=== PATIENT | female | born 1955 | race Caucasian/White ===

== ENCOUNTER → 2020-05-22 11:53 | Outpatient (CLI) | payer BC, SELFPAY ==
[2020-05-22 13:06] LABS: Coronavirus 19 IgG Antibody Negative (Negative); Coronavirus 19 IgM Antibody Negative (Negative)
== END ==
PROVIDERS: Visit Provider Internal Medicine Gastroenterology
DX: Z01.812 Encounter for preprocedural laboratory examination (principal)
CPT/HCPCS: 36415; 86328

== ENCOUNTER 2020-05-24 06:48 | Day surgery (SDC) | payer BC, SELFPAY ==
[2020-05-21 14:15] VITALS: BMI 32.1
[2020-05-24 07:17] VITALS: BP 192/96; PULSE 71; RESP 16; TEMP 36.3; O2SAT 98
[2020-05-24 07:20] LABS: POC Glucose,Bedside 136 (70-110)
[2020-05-24 08:06] VITALS: O2SAT 97
--- NOTE | 2020-05-24 08:07 | HMH.ANESCL ---
[facility] Anesthesia Checklist - Patient Identification Patient Identification: Arm Band - Structural Data Admitted From: Home Planned Operative Procedure/s: egd Consent for Planned Operative Procedure(s) Verified: Yes Verified Documents: Surgical Consent, History and Physical - NPO Status Verified Time NPO: 00:00 - Additional verifications Anesthesia Reactions: No - Airway Assessment C-Spine Mobility Assessed: Yes (mp2) TMJ Mobility Assessed: Yes Dentition: Good Dentition - Neurological Assessment Level of Consciousness: Awake, Alert - Anesthesia Plan Anesthesia Risk discussed: Yes Anesthesia Plan: Verified ASA Class: III Anesthesia Type: MAC [facility] History I have reviewed the patient's past medical history: Yes Medical History: Reports:: Diabetes Mellitus Type 2, Heart Murmur, Hyperlipidemia, Hypertension Denies:: Cancer, Diabetes Mellitus Type 1, Internal Pacemaker, MRSA, Seizures *Have you ever received a pneumonia vaccine?: Yes *Have you received a flu vaccine this season?: Yes Anesthesia experience/problems:: nac Other Surgeries: Yes: Hysterectomy-Total, Other. No: Pacemaker Amputation: No Fractures: No - *Social History Alcohol Intake: never Substance Use Type: denies use *Occupational Status:: retired Housing: house Household Members: spouse *Travel in the last 8 weeks: None Family Hx:: No significant family history
--- NOTE | 2020-05-24 08:08 | P.PCN_ITS ---
[facility] Procedure Note Procedure Note:: Upper Endoscopy Procedure Report: Esophagogastroduodenoscopy with cold biopsies and TTS balloon dilation Endoscopost: Ezequiel Blanco II, MD Referring Physician: Paulino Greco MD Date of Procedure: May 24, 2020 Equipment: Olympus GIF 180 standard upper endoscope Sedation: MAC sedation Indications: Mrs. Torres is a 65-year-old female who was diagnosed with Dent's esophagus 1-1/2 years ago in [place] (Dr. Gallo Palafox) and she has been on omeprazole. Most of her symptoms of heartburn and reflux are controlled. The patient does get dyspepsia with epigastric abdominal discomfort, bloating and belching. Occasionally, she will have to expel gas or have a bowel movement to get some relief. She does have some looser bowel movements that alternate with regular. She has some incomplete bowel evacuation. The patient reports occasional nausea and emesis. She has occasional dysphagia. Procedure: Prior to the procedure, a history and physical exam was performed, and patient's medications and allergies were reviewed. The risks, benefits and alternatives of the sedation and procedure were discussed with the patient. All questions were answered and informed consent was obtained. The patient was brought to the procedure room. Patient identification and proposed procedure were verified by the physician and the nurse. The patient was placed in a left lateral decubitus position and the scope was passed under direct vision. Throughout the procedure, the patient's blood pressure, pulse, and oxygen saturations were monitored continuously. The upper GI endoscopy was accomplished without difficulty. The patient tolerated the procedure well. Findings: The scope was passed directly into the upper esophagus and advanced to the third portion of the duodenum. The post bulbar duodenum and duodenal bulb were normal with normal mucosa and conniventes. Cold biopsies were obtained from the post bulbar duodenum and duodenal bulb to rule out celiac disease. The scope was withdrawn through a normal duodenal bulb and pylorus into the stomach. There was evidence of moderate linear reactive gastropathy of the antrum and body of the stomach with bile reflux. The remainder of the fundus of the stomach were grossly normal. Upon retroflexion there was a 2 cm small hiatal hernia. 2 biopsies were taken in the antrum and along the lesser curvature for histology to rule out gastritis and/or H pylori. The scope was then withdrawn into the esophagus. There was a serrated Z-line with a couple of small islands of salmon-colored mucosa that were biopsied to rule out very short segment Dent's esophagus. There was no evidence of reflux esophagitis. There were tertiary contractions and evidence of moderate esophageal dysmotility. The entire esophagus was dilated to 60 [place]/20 mm with a TTS hydrostatic balloon. There was some resistance at the cricopharyngeus. The remainder of the esophageal mucosa was normal. Impression: 1. Very short segment Dent's esophagus 2. Nonerosive GERD with moderate esophageal dysmotility and small 2 cm hiatal hernia 3. Moderate linear reactive gastropathy with bile reflux Plan: The patient has a very short segment of Dent's and I will follow-up the biopsies. The patient should not require surveillance upper endoscopy for 3 to 5 years as long as the Dent's shows no evidence of dysplasia. I would continue PPI therapy for complicated GERD. The patient does have some functional dyspepsia. We will discuss additional dietary measures and treatment options.
[2020-05-24 08:23] VITALS: BP 150/80; PULSE 75; RESP 12; TEMP 36.9; O2SAT 96
[2020-05-24 08:33] VITALS: BP 169/85; PULSE 73; RESP 16; O2SAT 96
[2020-05-24 08:43] VITALS: BP 166/86; PULSE 74; RESP 16; O2SAT 97
[2020-05-24 08:53] VITALS: BP 170/83; PULSE 62; RESP 16; TEMP 36.9; O2SAT 96
== END 2020-05-24 09:04 | disposition home or self-care (01) ==
LOC: OUTP 06:51
PROVIDERS: PCP Internal Medicine; Visit Provider Internal Medicine Gastroenterology
PROC: 0DJ08ZZ Inspection of Upper Intestinal Tract, Via Natural or Artificial Opening Endoscopic (ICD-10-PCS; CPT 43235; principal; 2020-05-24 08:00)
DX: K22.4 Dyskinesia of esophagus (principal); K22.719 Barrett's esophagus with dysplasia, unspecified; K21.9 Gastro-esophageal reflux disease without esophagitis; K44.9 Diaphragmatic hernia without obstruction or gangrene; K31.9 Disease of stomach and duodenum, unspecified; E11.9 Type 2 diabetes mellitus without complications; I10 Essential (primary) hypertension; E78.5 Hyperlipidemia, unspecified; R01.1 Cardiac murmur, unspecified; Z88.6 Allergy status to analgesic agent; Z88.1 Allergy status to other antibiotic agents; Z79.899 Other long term (current) drug therapy
CPT/HCPCS: 82962; C1726

== ENCOUNTER 2021-10-21 11:00 | Outpatient (RCR) | payer BC, SELFPAY | END 2021-10-21 11:05 | disposition home or self-care (01) | LOC: OT 11:00 | PROVIDERS: PCP Internal Medicine; Visit Provider Orthopaedic Surgery Adult Reconstructive Orthopaedic Surgery | DX: M65.321 Trigger finger, right index finger (principal) | CPT/HCPCS: 97010; 97014; 97140; 97165; G0283 ==